=== PATIENT | female | born 1970 | race Caucasian/White ===

== ENCOUNTER → 2017-01-17 | Outpatient (CLI) | payer MEDICAID | LOC: FIMAGING 13:38 | PROVIDERS: ATTEND Nurse Practitioner Family | DX: R91.8 Other nonspecific abnormal finding of lung field (principal) ==

== ENCOUNTER → 2018-08-27 | Outpatient (CLI) | payer MEDICAID ==
[~2018-08-27] MED LIST: LIDOCAINE 1% 300 MG/30 ML SDV ONE
== END ==
LOC: FIMAGING 10:05
PROVIDERS: ATTEND Family Medicine
PROC: 0G9K3ZX Drainage of Thyroid Gland, Percutaneous Approach, Diagnostic (ICD-10-PCS; principal; 2018-08-27)
DX: E04.2 Nontoxic multinodular goiter (principal); R59.0 Localized enlarged lymph nodes
CPT/HCPCS: 88184-90; 88185-91

== ENCOUNTER 2019-02-07 11:46 | Emergency (ER) | payer MEDICAID ==
[2019-02-07 11:55] VITALS: BP 134/72
[2019-02-07] MEDS ORDERED: LIDOCAINE 4%/MENTHOL 1% PATCH TD ONE (12:25)
[2019-02-07] MEDS ORDERED: ACETAMINOPHEN 500 MG TAB PO ONE (12:25)
[2019-02-07] MEDS ORDERED: DIAZEPAM 5 MG TAB PO ONE (12:25)
--- NOTE | 2019-02-07 12:28 | EDPHY ---
H & P Stated Complaint: back pain for three days Time Seen by Provider: 02/07/19 11:57 HPI/ROS: CHIEF COMPLAINT: Low back pain HISTORY OF PRESENT ILLNESS: 48-year-old female with bipolar disorder and spinal stenosis presents with low back pain. 3 days ago, she had "extra energy " and was more active than usual, including swinging from a tree branch. Onset of LBP the following day. The low back pain is moderate to severe and increases with any movement. Taking ibuprofen and Flexeril with minimal relief. No radiation of pain and no weakness or numbness. REVIEW OF SYSTEMS: complete 10 point ROS reviewed and is negative except for the noted elements in the HPI - Personal History LMP (Females 10-55): Now Current Tetanus/Diphtheria Vaccine: Yes Current Tetanus Diphtheria and Acellular Pertussis (TDAP): Yes Tetanus Vaccine Date: 2013 - Medical/Surgical History Hx Asthma: Yes Hx Chronic Respiratory Disease: Yes Hx Diabetes: No Hx Cardiac Disease: No Hx Renal Disease: No Hx Cirrhosis: No Hx Alcoholism: No Hx HIV/AIDS: No Hx Splenectomy or Spleen Trauma: No Other PMH: spinal stenosis, carpal tunnel, closed head injuries. surg-carpal tunnel. seizure disorder, anxiety, PTSD, CHRONIC NEUROPATHY AND SEVERE PAIN LUE - Social History Smoking Status: Current every day smoker Alcohol Use: Sober Drug Use: None - Physical Exam Exam: General Appearance: Alert, pleasant Eyes: Pupils equal and round, no conjunctival pallor or injection ENT, Mouth: Mucous membranes moist Neck: Normal inspection Respiratory: Lungs are clear to auscultation Cardiovascular: Regular rate and rhythm Gastrointestinal: Abdomen is soft and nontender Back: Tenderness over the right lumbar paraspinous musculature Neurological: A&O, motor 5/5, slow and steady gait Skin: Warm and dry, no rash Extremities: Normal inspection, no tenderness, Negative SLR Psychiatric: Mood and affect normal Constitutional: Initial Vital Signs Temperature (C) 36.8 C 02/07/19 11:51 Heart Rate 86 02/07/19 11:51 Respiratory Rate 16 02/07/19 11:51 Blood Pressure 134/72 H 02/07/19 11:51 O2 Sat (%) 97 02/07/19 11:51 O2 Delivery Mode Room Air Allergies/Adverse Reactions: sulfamethoxazole [From Bactrim] Allergy (Verified 07/28/16 20:11) trimethoprim [From Bactrim] Allergy (Verified 07/28/16 20:11) Home Medications: Medication Instructions Recorded Effexor 11/17/15 GABAPENTIN 02/29/16 Diazepam [Valium 5 MG (*)] 5 mg PO Q6 PRN #10 tab 02/07/19 Medical Decision Making ED Course/Re-evaluation: This patient presents with low back strain. Neurologic exam is normal and neuro imaging is not indicated. Will provide symptomatic relief with a lidocaine patch, Tylenol and Valium. f/u PCP tomorrow. Warning signs discussed. - Data Points Medications Given: Discontinued Medications Acetaminophen (Tylenol) 1,000 mg PO EDNOW ONE Stop: 02/07/19 12:26 Last Admin: 02/07/19 12:32 Dose: 1,000 mg Diazepam (Valium) 5 mg PO EDNOW ONE Stop: 02/07/19 12:26 Last Admin: 02/07/19 12:32 Dose: 5 mg Miscellaneous Medication (Icy Hot Lidocaine/Menthol 4%/1% Patch) 1 patch TD EDNOW ONE Stop: 02/07/19 12:26 Last Admin: 02/07/19 12:32 Dose: 1 patch Departure - Departure Disposition: Home, Routine, Self-Care Clinical Impression: Low back pain Qualifiers: Chronicity: acute Back pain laterality: right Sciatica presence: without sciatica Qualified Code(s): M54.5 - Low back pain Condition: Good Instructions: Low Back Strain (ED) Additional Instructions: Tylenol 650 mg every 4 hr while pain persists. Apply a lidocaine patch as directed on the packaging. This medication is over- the-counter. Use Valium as needed for muscle spasm. Keep your follow-up appointment with Dr. Burch tomorrow. Referrals: Aaliyah Burch MD [Primary Care Provider] - As per Instructions Prescriptions: Diazepam [Valium 5 MG (*)] 5 mg PO Q6 PRN #10 tab PRN Reason: muscle spasm
[2019-02-07] MEDS ORDERED: PATCH REMOVAL 1 EA PATCH TD SCH (21:00)
== END 2019-02-07 12:43 | disposition home or self-care (01) ==
DX: M54.5 Low back pain (principal)